=== PATIENT | male | born 1935 | race Caucasian/White ===

== ENCOUNTER 2018-11-20 16:01 | Emergency (ER) | payer OTHER ==
[~2018-11-20] VITALS: Ht 154.9 cm; Wt 61.4 kg
[~2018-11-20 16:01] MED LIST: ALBU8.5H8 INH; AMLO5TAB4 PO; ARIP2TAB17 PO; ATOR20TA38 PO; BENA20TA4 PO; BRIM15DR7 BOTH EYES; HYDR12.58 PO; LATA2.5D2 BOTH EYES; PARO-37 PO; TAMS-14 PO; TIMO5DRO30 BOTH EYES; [UNRECOGNIZED DRUG - CODE] PO
[2018-11-20 16:13] VITALS: Ht 154.9 cm; Wt 61.4 kg
--- NOTE | 2018-11-20 16:15 | ERD ---
ER Documentation Chief Complaint Chief Complaint SUICIDAL IDEATION WITH PLAN TO CUT HIS ARM. C/O DEPRESSION HPI The patient is a 83-year-old male, presenting to the ER because of acute suicidal ideation, he cut his left forearm with a knife and sustained a superficial wound today. He has been depressed, he denies suicidal ideation, auditory/visual hallucination, headache, neck pain, chest pain, dyspnea, abdominal pain, vomiting, dysuria, diarrhea. He lives in assisted living home, denies smoking, drinks socially He complains of chronic rash on the left lower extremity for more than 2 months, pruritic Medical history: Depression, chronic kidney disease, diabetes mellitus Surgical history: Left hip arthroplasty, left wrist and left knee surgery ROS All systems reviewed and are negative except as per history of present illness. Medications Home Meds Reported Medications Guaifenesin (Siltussin Sa) 100 Mg/5 Ml Syrup, 5 ML PO Q6H 11/20/18 Albuterol Sulfate* (Proair HFA*) 8.5 Gm Hfa.aer.ad, 2 PUFF INH Q4H PRN for WHEEZING AND SOB, #1 INHALER 11/20/18 Tamsulosin Hcl* (Flomax*) 0.4 Mg Cap.er.24h, 0.4 MG PO HS, CAP 11/20/18 Atorvastatin Calcium* (Atorvastatin Calcium*) 20 Mg Tablet, 20 MG PO QHS, #30 TA B 11/20/18 Timolol Maleate* (Timoptic*) 0.5%-5ml Opht, 1 DROP BOTH EYES DAILY, #1 EA 11/20/18 Latanoprost (Latanoprost) 2.5 Ml Drops, 1 DROP BOTH EYES QHS, #1 BOTTLE 11/20/18 Brimonidine Tartrate* (Brimonidine Tartrate*) 0.2%-15ML Drop Opht, 1 DROP BOTH EYES Q8, #1 EA 11/20/18 Paroxetine Hcl* (Paroxetine*) 20 Mg Tablet, 40 MG PO HS, TAB 11/20/18 Hydrochlorothiazide* (Hydrochlorothiazide*) 12.5 Mg Tablet, 25 MG PO DAILY, #30 TAB 11/20/18 Benazepril Hcl* (Benazepril Hcl*) 20 Mg Tablet, 20 MG PO DAILY, #30 TAB 11/20/18 Aripiprazole* (Abilify*) 2 Mg Tablet, 2 MG PO DAILY, #30 TAB 11/20/18 Amlodipine Besylate* (Norvasc*) 5 Mg Tablet, 5 MG PO DAILY, TAB 11/20/18 Allergies Allergies: Coded Allergies: No Known Allergy (Unverified , 11/20/18) Physical Exam Vitals Vital Signs Date Temp Pulse Resp B/P (MAP) Pulse Ox O2 O2 Flow FiO2 Time Delivery Rate 11/20/18 97.9 56 16 123/61 99 16:13 (81) Physical Exam Const: No acute distress. Head: Atraumatic. Eyes: Normal Conjunctiva. ENT: Normal External Ears, Nose and Mouth. Neck: Full range of motion. No meningismus. Resp: Clear to auscultation bilaterally. Cardio: Regular rate and rhythm. Abd: Soft, non distended, normal bowel sounds, non tender. Skin: No petechiae or rashes. Back: No midline or flank tenderness. Ext: No cyanosis, or edema. Left forearm with a superficial cut, not amenable for suture. Scaly lesion at LLE Neur: Awake and alert. No focal deficit Psych: Depressed Result Diagram: 11/20/18 1626 11/20/18 1626 Results 24 hrs Laboratory Tests Test 11/20/18 16:24 11/20/18 16:26 Urine Color YELLOW Urine Clarity CLEAR Urine pH 5.0 Urine Specific [place] 1.014 Urine Ketones NEGATIVE mg/dL Urine Nitrite NEGATIVE mg/dL Urine Bilirubin NEGATIVE mg/dL Urine Urobilinogen NEGATIVE mg/dL Urine Leukocyte Esterase NEGATIVE Junie/ul Urine Hemoglobin NEGATIVE mg/dL Urine Glucose NEGATIVE mg/dL Urine Total Protein NEGATIVE mg/dl Urine Opiates Screen NEGATIVE Urine Barbiturates NEGATIVE Urine Amphetamines Screen NEGATIVE Urine Benzodiazepines Screen NEGATIVE Urine Cocaine Screen NEGATIVE Urine Cannabinoids NEGATIVE White Blood Count 5.9 10^3/ul Red Blood Count 3.15 10^6/ul Hemoglobin 10.2 g/dl Hematocrit 31.7 % Mean Corpuscular Volume 100.6 fl Mean Corpuscular Hemoglobin 32.4 pg Mean Corpuscular Hemoglobin Concent 32.2 g/dl Red Cell Distribution Width 12.2 % Platelet Count 180 10^3/UL Mean Platelet Volume 11.5 fl Immature Granulocytes % 0.000 % Neutrophils % 57.6 % Lymphocytes % 20.2 % Monocytes % 11.2 % Eosinophils % 10.0 % Basophils % 1.0 % Nucleated Red Blood Cells % 0.0 /100WBC Immature Granulocytes # 0.000 10^3/ul Neutrophils # 3.4 10^3/ul Lymphocytes # 1.2 10^3/ul Monocytes # 0.7 10^3/ul Eosinophils # 0.6 10^3/ul Basophils # 0.1 10^3/ul Nucleated Red Blood Cells # 0.0 10^3/ul Sodium Level 139 mmol/L Potassium Level 4.6 mmol/L Chloride Level 107 mmol/L Carbon Dioxide Level 24 mmol/L Anion Gap 8 Blood Urea Nitrogen 31 mg/dl Creatinine 1.95 mg/dl Est Glomerular Filtrat Rate mL/min mL/min Glucose Level 111 mg/dl Calcium Level 9.5 mg/dl Total Bilirubin 0.2 mg/dl Direct Bilirubin 0.00 mg/dl Indirect Bilirubin 0.2 mg/dl Aspartate Amino Transf (AST/SGOT) 26 IU/L Alanine Aminotransferase (ALT/SGPT) 25 IU/L Alkaline Phosphatase 66 IU/L Total Protein 7.1 g/dl Albumin 4.3 g/dl Globulin 2.80 g/dl Albumin/Globulin Ratio 1.53 Salicylates Level < 1.0 mg/dl Acetaminophen Level < 10.0 ug/ml Ethyl Alcohol Level < 10.0 mg/dl Current Medications Medications Dose Sig/Prema Start Time Status Last (Trade) Ordered Route PRN Stop Time Admin Dose Reason Admin Diphtheria/ 0.5 ml ONCE ONCE 11/20/18 DC 11/20/18 Tetanus/Acell IM* 17:00 22:16 Pertussis 11/20/18 18:46 (Adacel) Procedures/MDM MEDICAL MAKING DECISION: The patient is a 83-year-old male, presenting with acute suicidal ideation, acute self-inflicted wound, tinea corpora The left upper extremity self inflicted wound was cleaned and dressed with normal saline and bacitracin The differential diagnoses considered include but are not limited to depression, medical noncompliance, decompensated psychiatric illness Consultation: He was evaluated by telepsychiatrist who put him a 5150 hold Departure Diagnosis: Primary Impression: Suicidal ideation Additional Impressions: Self-inflicted injury Tinea corporis Anemia Condition: Stable Comments He is cleared for psychiatric evaluation and admission VIVEK MONET MD Nov 20, 2018 16:15
[2018-11-20] MEDS ORDERED: DIPHTH/TET/ACEL PERTUSS (ADULT) 0.5 ML VIAL IM* ONE (17:00)
--- NOTE | 2018-11-20 19:11 | PSY ---
Date/Time of Note Date/Time of Note DATE: 11/20/18 TIME: 18:46 Psychiatric Subjective Eval Consent Pt consented to telemedicine: Yes Subjective Evaluation Patient location: emergency Chief Complaint: SUICIDAL IDEATION WITH PLAN TO CUT HIS ARM. C/O DEPRESSION AND MEMORY ISSUE Reason for consult: The patient cut his arm with a small knife. He lives at an [facility]. History of present illness Per RN the patient cut his arm at an [facility] with a small knife. The cut was just a skin tear. No stitches were required. The patient stated he didn't like the way his life was going and said he "decided to take it." He said he tried to take his own life by slitting his neck and arm. He was able to cut himself but said "it didn't go deep enough." He said he went to the office and told them he was contemplating taking his life. He said he feels he has failed in life and became a father too young despite never wanting to have children. He also said he has a lot of physical problems that bother him. He also said he has started having memory problems and cannot drive anymore and feels "kind of messed up." He stated he still finds "kind of" like he would want to take his life and said he still thinks his life is overall a failure. He said he's not a violent person but sometimes has weird thoughts about wanting to hurt someone randomly. he stated he often feels like trying to kill himself but feels he cannot get up the courage to do so effectively. He often worries a lot and is a bit of a hypochondriac and recently thought a rash on his foot was something serious. He stated he doesn't sleep well usually. He has a good appetite. He has "terrible" energy. He has impaired concentration. He has feelings of guilt related to how his life has turned out. Past psychiatric history He isn't sure if he's taking psychiatric medications. Medication list shows Paxil + Abilify. Psychiatric admission in 1963 for a "nervous breakdown." Past suicide attempts by overdose on aspirin and jumping off a roof. Hospitalization: yes (Was in a mental hospital x 4 months in 1963 for a "nervous breakdown." Tried to jump off a roof in 1963. Previous overdose on aspirin.) Family History Father - "Had a breakdown." Medical history HTN, DM II, CKD Allergies: Coded Allergies: No Known Allergy (Unverified , 11/20/18) Substance Abuse Substance use: other (Occasional wine, previously smoked marijuana. 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 Psychiatric Objective Eval Physical Examination: Sleep: Insomnia Appetite: Adequate Energy: Decreased Interest: Decreased Mental Status Examination: Appearance: Groomed Eye Contact: Fair Psychomotor Activity: Normal Behavior: Cooperative Speech: Clear AFFECT: Constricted Mood: Depressed Though Process: Linear Thought Content: Normal Suicidal: Yes Homicidal: No On 72 hour hold: No Orientation: x4 Cognition: Alert Insight: Intact Judgement: Impared Attention Span: Intact Laboratory Results Laboratory Tests Test 11/20/18 16:24 11/20/18 16:26 Urine Color YELLOW Urine Clarity CLEAR Urine pH 5.0 Urine Specific [place] 1.014 Urine Ketones NEGATIVE mg/dL Urine Nitrite NEGATIVE mg/dL Urine Bilirubin NEGATIVE mg/dL Urine Urobilinogen NEGATIVE mg/dL Urine Leukocyte Esterase NEGATIVE Junie/ul Urine Hemoglobin NEGATIVE mg/dL Urine Glucose NEGATIVE mg/dL Urine Total Protein NEGATIVE mg/dl Urine Opiates Screen NEGATIVE Urine Barbiturates NEGATIVE Urine Amphetamines Screen NEGATIVE Urine Benzodiazepines Screen NEGATIVE Urine Cocaine Screen NEGATIVE Urine Cannabinoids NEGATIVE White Blood Count 5.9 10^3/ul Red Blood Count 3.15 10^6/ul Hemoglobin 10.2 g/dl Hematocrit 31.7 % Mean Corpuscular Volume 100.6 fl Mean Corpuscular Hemoglobin 32.4 pg Mean Corpuscular Hemoglobin Concent 32.2 g/dl Red Cell Distribution Width 12.2 % Platelet Count 180 10^3/UL Mean Platelet Volume 11.5 fl Immature Granulocytes % 0.000 % Neutrophils % 57.6 % Lymphocytes % 20.2 % Monocytes % 11.2 % Eosinophils % 10.0 % Basophils % 1.0 % Nucleated Red Blood Cells % 0.0 /100WBC Immature Granulocytes # 0.000 10^3/ul Neutrophils # 3.4 10^3/ul Lymphocytes # 1.2 10^3/ul Monocytes # 0.7 10^3/ul Eosinophils # 0.6 10^3/ul Basophils # 0.1 10^3/ul Nucleated Red Blood Cells # 0.0 10^3/ul Sodium Level 139 mmol/L Potassium Level 4.6 mmol/L Chloride Level 107 mmol/L Carbon Dioxide Level 24 mmol/L Anion Gap 8 Blood Urea Nitrogen 31 mg/dl Creatinine 1.95 mg/dl Est Glomerular Filtrat Rate mL/min mL/min Glucose Level 111 mg/dl Calcium Level 9.5 mg/dl Total Bilirubin 0.2 mg/dl Direct Bilirubin 0.00 mg/dl Indirect Bilirubin 0.2 mg/dl Aspartate Amino Transf (AST/SGOT) 26 IU/L Alanine Aminotransferase (ALT/SGPT) 25 IU/L Alkaline Phosphatase 66 IU/L Total Protein 7.1 g/dl Albumin 4.3 g/dl Globulin 2.80 g/dl Albumin/Globulin Ratio 1.53 Salicylates Level < 1.0 mg/dl Acetaminophen Level < 10.0 ug/ml Ethyl Alcohol Level < 10.0 mg/dl Assessment and Plan Assessment/Diagnosis Diagnosis Major Depressive Disorder Recommendation/Plan Multiple antipsychotics: No Discharge Disposition: Psychiatric inpatient Legal Status: Place involuntary hold Other Several risk factors for suicide including symptoms of MDD, past attempts, age, medical comorbidities. ECTOR PELAYO MD Nov 20, 2018 19:00
[2018-11-21] MEDS ORDERED: BRIMONIDINE 0.2% 5 ML BTL BOTH EYES ONE (06:00)
[2018-11-21] MEDS ORDERED: TIMOLOL 0.5% 5 ML OPH BOTH EYES ONE (09:00)
[2018-11-21] MEDS: LATANOPROST 0.005% 2.5 ML OPH BOTH EYES SCH ×2 (18:57→18:58)
[2018-11-21 21:02] VITALS: BP 123/74; PULSE 55; RESP 18
== END 2018-11-21 21:07 ==
LOC: E/R 16:01
DX: S51.812A Laceration without foreign body of left forearm, initial encounter (principal); B35.4 Tinea corporis; D64.9 Anemia, unspecified; E11.22 Type 2 diabetes mellitus with diabetic chronic kidney disease; N18.9 Chronic kidney disease, unspecified; X78.1XXA Intentional self-harm by knife, initial encounter; Y92.009 Unspecified place in unspecified non-institutional (private) residence as the place of occurrence of the external cause; Z96.642 Presence of left artificial hip joint
CPT/HCPCS: 80053; 80307; 81003; 85025; 90471; 90715